=== PATIENT | male | born 1990 | race Two or more races ===

== ENCOUNTER 2019-03-21 22:07 | Emergency (ER) | payer OTHER ==
[~2019-03-21] VITALS: Ht 185.4 cm; Wt 106.6 kg
[2019-03-22] MEDS ORDERED: PREVACID30 M1 PO ×2 (04:19→04:21)
[2019-03-22] MEDS ORDERED: METOCLOPRAMIDE H5 M1 PO ×2 (04:20→04:21)
== END 2019-03-22 04:30 | disposition home or self-care (01) ==
LOC: ER 22:07
DX: K21.9 Gastro-esophageal reflux disease without esophagitis (principal)